=== PATIENT | female | born 1995 | race Caucasian/White ===

== ENCOUNTER 2016-09-20 09:53 | Emergency (ER) | payer SELFPAY ==
[2016-09-20 09:59] VITALS: BP 118/65; BMI 22.3
--- NOTE | 2016-09-20 10:23 | DR.GENAD ---
HPI - PCP Primary Care Physician: fredi - Complaint/Symptoms Chief Complaint Doctors Comments: Patient complained of sore throat for the past 24 hours and today when she was getting ready to go to work she vomitted x3 and got dizzy when she was standing like she was going to pass out she got light headed but no LOC. States she has had two periods this month with heavy bleeding. she is taking control pills and has not missed any pills. She denies dysuria, fever, chills, cold or cough. She has been having problems with her sinus. Chief Complaint:: patient stated her throat was hurting yesterday but this morning before she was to go to work she was dizzy and had blurried vision and she vomitied 3 times. - Nurses notes reviewed Nurses Notes Review: Yes - Source History Provided: Patient - Mode of Arrival Mode of Arrival: Ambulatory - Timing Onset of Chief Complaint: 09/19/16 Came on: Gradually - Duration Duration: Intermittent How lon Duration: Hours - Location Location: sore throat - Severity Severity: Moderate - Modifying Factors Worsens:: nothing Improves:: nothing PMH - PMH Past Medical History: Yes Past Medical History: Depression Past Surgical History: No - Family History History of Family Medical Conditions: Yes Family Medical History: Diabetes Mellitus, Cancer, Coronary Artery Disease, Hypertension - Social History Does patient currently use any type of tobacco product: No Have you used tobacco products in the last 12 months: No Type of Tobacco Use: None Does any household member use tobacco: Yes Alcohol Use: Rarely Do you use any recreational Drugs:: No Lives With: Family Lives Where: Home - infectious screening In the last 2 months have you had wt loss of >10#?: NO Have you had fever, night sweats or hemotysis?: No Have you traveled outside the country in the last 6 months?: No Isolation: Standard ROS - Review of Systems Constitutional: No Symptoms Reported. negative: See HPI, Chills, Diaphoresis, Fever, Malaise, Weakness, Irritable, Fatigue, Loss of Appetite, Other Eyes: No Symptoms Reported ENTM: No Symptoms Reported, Nose Discharge, Nose Congestion, Throat Pain. negative: See HPI, Ear Pain, Ear Discharge, Pulling on Ears, Hearing Loss, Nose Pain, Epistaxis, Mouth Pain, Mouth Swelling, Loose Teeth, Drooling, Throat Swelling, Ear Foreign Body Respiratoy: negative: No Symptoms Reported, See HPI, Productive Cough, Non- Productive Cough, Moist Cough, Dry Cough, Hacking Cough, Barking Cough, Brassy Cough, Orthopnea, Short of Breath, Stridor, Wheezing, Hemoptysis, Other Cardiovascular: No Symptoms Reported. negative: See HPI, Chest Pain, Edema, Palpitations, Syncope, Cyanosis, Skin Mottling, Other Gastrointestinal/Abdominal: No Symptoms Reported, Nausea, Vomiting. negative: See HPI, Abdominal Pain, Constipation, Diarrhea, Food Intolerance, Other Genitourinary: No Symptoms Reported. negative: See HPI, Discharge, Dysuria, Frequency, Hematuria, Pain, Bleeding, Other Neurological: No Symptoms Reported Musculoskeletal: No Symptoms Reported Integumentary: No Symptoms Reported Hematologic/Lymphatic: No Symptoms Reported. negative: See HPI, Anemia, Blood Clots, Easy Bleeding, Easy Bruising, Swollen Glands, Lymphadenopathy, Other Endocrine: No Symptoms Reported Psychiatric: No Symptoms Reported PE - Vital Signs Vitals: Temperature 98.9 F Pulse Rate 91 Respiratory Rate 16 Blood Pressure 118/65 O2 Sat by Pulse Oximetry 100 - General Limitations: No Limitations General Appearance: Alert, In No Apparent Distress - Eyes Eye exam: Normal Appearance, PERRL, EOMI, Scleral Icterus. negative: Conjunctival Injection, Nystagmus, Miosis, Mydrasis, Periorbital Swelling, Periorbital Tenderness, Other - ENT ENT Exam: Normal Exam, Normal Oropharynx, Normal External Ear Exam, Mucous Membranes Moist, TM's Normal Bilaterally External Ear Exam: Normal External Inspection TM/Canal Exam: Bilateral Normal Nose Exam: Normal Nose Exam Mouth Exam: Normal Inspection. negative: Drooling, Trismus, Lip Swelling, Tongue Elevation, Tongue Swelling, Laceration, Other Throat Exam: Normal Inspection, Tonsillar Erythema, Tonsillomegaly. negative: Tonsillar Exudate, R Peritonsillar Mass, L Peritonsillar Mass, Muffled Voice, Other - Neck Neck Exam: Normal Inspection, Full ROM, Trachea Midline, Lymphadenopathy - Respiratory Respiratory Exam: Normal Lung Sounds Bilat. negative: Accessory Muscle Use, Chest Wall Tenderness, Prolonged Expiratory Phase, Respiratory Distress, Stridor , Other Respiratory Exam: Bilateral Clear to Auscultation - Cardiovascular Cardiovascular Exam: Regular Rate, Normal Rhythm, Normal Heart Sounds. negative : Bradycardia, Tachycardia, Irregular Rhythm, Systolic Murmur, Diastolic Murmur , Rubs, Gallop, Clicks, JVD, +S1, +S2, +S3, +S4, Other - Abdominal Exam Abdominal Exam: Normal Inspection, Normal Bowel Sounds, Soft, Dimnished Bowel Sounds. negative: Distention, Tenderness, Guarding, Rebound, Rigidity, Hyperactive Bowel Sounds, Hypoactive Bowel Sounds, Organomegaly, Trauma, Incision, Ascites, Mass, Bruit, Pulsatile Mass, Hernia, Other Abdominal Tenderness: negative: RUQ, RLQ, LUQ, LLQ, Epigastrium, Suprapubic, Diffuse, Mild, Moderate, Severe, Other - Extremities Extremities Exam: Normal Inspection, Full ROM, Normal Capillary Refill. negative: Tenderness, Edema, Joint Swelling, Calf Tenderness, Other - Back Back Exam: Normal Inspection, Full ROM. negative: Tenderness, (R) CVA Tenderness, (L) CVA Tenderness, Muscle Spasm, Paraspinal Tenderness, Vertebral Tenderness, Rashes, (R) Sciatic Notch Tenderness, (L) Sciatic Notch Tendern, (R ) Straight Leg Raise, (L) Straight Leg Raise, Other - Neurologic Neurological Exam: Alert, Oriented X3, CN II-XII Intact, Normal Gait, Reflexes Normal - Psychiatric Psychiatric Exam: Normal Affect, Normal Mood. negative: Depressed, Agitated, Anxious, Flat Affect, Manic, Homicidal Ideation, Suicidal Ideation, Other - Skin Skin Exam: Warm, Dry, Intact, Normal Color. negative: Rash, Cyanosis, Diaphoresis, Erythema, Pallor, Mottled, Other ROR - Labs Reviewed Laboratory Results Reviewed?: Yes (all labs and x-ray results reviewed and discussed with patient) Result Diagrams: 09/20/16 10:45 09/20/16 10:45 Laboratory: WBC 16.4 X10^3/uL (3.6-10.0) H 09/20/16 10:45 RBC 4.82 X10^6/uL (3.5-5.4) 09/20/16 10:45 Hgb 14.5 g/dL (12.0-16.0) 09/20/16 10:45 Hct 42.3 % (36.0-47.0) 09/20/16 10:45 MCV 87.8 fL (80.0-100.0) 09/20/16 10:45 MCH 30.1 pg (27.0-34.0) 09/20/16 10:45 MCHC 34.4 g/dL (33.0-35.0) 09/20/16 10:45 RDW 12.7 % (11.6-16.5) 09/20/16 10:45 Plt Count 221 X10^3/uL (150.0-450.0) 09/20/16 10:45 Plt Count Comment Adequate (ADEQUATE) 09/20/16 10:45 MPV 10.2 fL (7.4-11.0) 09/20/16 10:45 Neut % 91.0 % (42.0-75.0) H 09/20/16 10:45 Lymph % 5.1 % (21.0-51.0) L 09/20/16 10:45 [place] % 3.6 % (0.0-13.0) 09/20/16 10:45 Eos % 0.1 % (0.9-2.9) L 09/20/16 10:45 Baso % 0.2 % (0.2-1.0) 09/20/16 10:45 Neut # 14.9 x10^3/uL (2.2-4.8) H 09/20/16 10:45 Lymph # 0.8 X10^3/uL (1.3-2.9) L 09/20/16 10:45 [place] # 0.6 x10^3/uL (0.3-0.8) 09/20/16 10:45 Eos # 0.0 x10^3/uL (0.0-0.2) 09/20/16 10:45 Baso # 0.0 X10^3/uL (0.0-0.1) 09/20/16 10:45 Absolute Nucleated RBC 0.0 /100WBC 09/20/16 10:45 Total Counted 100 09/20/16 10:45 Neutrophils % (Manual) 86 % (39-76) H 09/20/16 10:45 Band Neutrophils % 5 % (0-10) 09/20/16 10:45 Lymphocytes % (Manual) 5 % (13-43) L 09/20/16 10:45 Monocytes % (Manual) 3 % (4-9) L 09/20/16 10:45 Eosinophils % (Manual) 1 % (0-6) 09/20/16 10:45 Plt Morphology Comment Normal (NORMAL) 09/20/16 10:45 RBC Morphology Normal (NORMAL) 09/20/16 10:45 Sodium 140 mmol/L (136-145) 09/20/16 10:45 Corrected Sodium TNP 09/20/16 10:45 Potassium 4.0 mmol/L (3.5-5.1) 09/20/16 10:45 Chloride 105 mmol/L (98-107) 09/20/16 10:45 Carbon Dioxide 26.4 mmol/L (21-32) 09/20/16 10:45 BUN 16 mg/dL (7-18) 09/20/16 10:45 Creatinine 0.80 mg/dL (0.55-1.02) 09/20/16 10:45 Est GFR (MDRD) Af Amer > 60 (>60) 09/20/16 10:45 Est GFR (MDRD) Non-Af > 60 (>60) 09/20/16 10:45 Glucose 105 mg/dL (65-99) H 09/20/16 10:45 Calcium 9.4 mg/dL (8.5-10.1) 09/20/16 10:45 HCG, Qual Negative <10 mIU/mL 09/20/16 10:45 Specimen Type Clean catch urine 09/20/16 11:59 Urine Color Yellow (YELLOW) 09/20/16 11:59 Urine Appearance Cloudy (CLEAR) 09/20/16 11:59 Urine pH 6.0 (5.0 - 8.0) 09/20/16 11:59 Ur Specific [place] 1.020 (1.000-1.030) 09/20/16 11:59 Urine Protein 1+ (NEGATIVE) 09/20/16 11:59 Urine Glucose (UA) Negative (NEGATIVE) 09/20/16 11:59 Urine Ketones 2+ (NEGATIVE) 09/20/16 11:59 Urine Occult Blood 1+ (NEGATIVE) 09/20/16 11:59 Urine Nitrite Positive (NEGATIVE) 09/20/16 11:59 Urine Bilirubin Negative (NEGATIVE) 09/20/16 11:59 Urine Urobilinogen Normal (NORMAL) 09/20/16 11:59 Ur Leukocyte Esterase 3+ (NEGATIVE) 09/20/16 11:59 Urine RBC 5 - 10 /HPF (NEGATIVE) 09/20/16 11:59 Urine WBC Tntc /HPF (NEGATIVE) 09/20/16 11:59 Ur Squamous Epith Cells Few /HPF (NEGATIVE) 09/20/16 11:59 Urine Bacteria 3+ /HPF (NEGATIVE) 09/20/16 11:59 Urine Mucus Few /HPF (NEGATIVE) 09/20/16 11:59 Ur Culture Indicated? Yes/culture set up 09/20/16 11:59 Streptococcus Screen Negative (NEGATIVE) 09/20/16 11:10 - Diagnosis Discharge Problem: Pharyngitis Qualifiers: Pharyngitis/tonsillitis etiology: other specified organisms Qualified Code(s): J02.8 - Acute pharyngitis due to other specified organisms Urinary tract infection Qualifiers: Urinary tract infection type: acute cystitis Hematuria presence: without hematuria Qualified Code(s): N30.00 - Acute cystitis without hematuria Sinusitis Qualifiers: Sinusitis location: maxillary - Discharge Plan Disposition: HOME, SELF-CARE Condition: Stable Prescriptions: Cetirizine HCl [Zyrtec Tab 10 mg] 10 mg PO DAILY #30 tab Ibuprofen [MOTRIN TAB 800 MG *] 800 mg PO BID PRN #40 tab PRN Reason: Pain/Inflammation Levofloxacin [LEVAQUIN TAB 500 MG *] 500 mg PO Q24H PRN #10 tab PRN Reason: - Follow ups/Referrals Follow ups/Referrals: MADHURI CORONA [Primary Care Provider] - 3 days - Instructions Instructions: Pharyngitis, Sinusitis, Adult, Urinary Tract Infection
[2016-09-20 11:02] LABS: BASOPHILS % (AUTO) 0.2 % (0.2-1.0); EOSINOPHILS % (AUTO) 0.1 % (0.9-2.9); HEMATOCRIT 42.3 % (36.0-47.0); HEMOGLOBIN 14.5 g/dL (12.0-16.0); LYMPHOCYTES # (AUTO) 0.8 X10^3/uL (1.3-2.9); LYMPHOCYTES % (AUTO) 5.1 % (21.0-51.0); MEAN CORPUSCULAR HEMOGLOBIN 30.1 pg (27.0-34.0); MEAN CORPUSCULAR HGB CONC 34.4 g/dL (33.0-35.0); MEAN CORPUSCULAR VOLUME 87.8 fL (80.0-100.0); MEAN PLATELET VOLUME 10.2 fL (7.4-11.0); MONOCYTES # (AUTO) 0.6 x10^3/uL (0.3-0.8); MONOCYTES % (AUTO) 3.6 % (0.0-13.0); NEUTROPHILS # (AUTO) 14.9 x10^3/uL (2.2-4.8); PLATELET COUNT 221 X10^3/uL (150.0-450.0); RED BLOOD COUNT 4.82 X10^6/uL (3.5-5.4); RED CELL DISTRIBUTION WIDTH 12.7 % (11.6-16.5); WHITE BLOOD COUNT 16.4 X10^3/uL (3.6-10.0)
[2016-09-20 11:10] LABS: BLOOD UREA NITROGEN 16 mg/dL (7-18); CALCIUM 9.4 mg/dL (8.5-10.1); CARBON DIOXIDE 26.4 mmol/L (21-32); CHLORIDE 105 mmol/L (98-107); GLUCOSE 105 mg/dL (65-99); SODIUM 140 mmol/L (136-145); eGFR BLACK RACES > 60 (>60); eGFR NON BLACK RACES > 60 (>60)
[2016-09-20 11:12] LABS: SERUM PREGNANCY TEST, QUAL NEGATIVE <10 mIU/mL
[2016-09-20 11:15] LABS: BAND NEUTROPHILS % 5 % (0-10); PLATELET MORPHOLOGY COMMENT NORMAL (NORMAL)
[2016-09-20] MEDS ORDERED: TORADOL 60 MG VIAL IM ONE (11:43)
[2016-09-20] MEDS ORDERED: ZOFRAN TAB 4 MG PO STA (11:43)
[2016-09-20] MEDS ORDERED: ROCEPHIN VIAL 1 GM IM ONE (11:43)
[2016-09-20] MEDS ORDERED: ZOFRAN TAB 4 MG ONE (11:47)
[2016-09-20] MEDS ORDERED: TORADOL 60 MG VIAL ONE (11:48)
[2016-09-20] MEDS ORDERED: ROCEPHIN VIAL 1 GM ONE (11:48)
[2016-09-20 12:18] LABS: BILIRUBIN,URINE NEGATIVE (NEGATIVE); BLOOD/HEMOGLOBIN,URINE 1+ (NEGATIVE); GLUCOSE, URINE NEGATIVE (NEGATIVE); KETONES,URINE 2+ (NEGATIVE); LEUKOCYTE ESTERASE ,URINE 3+ (NEGATIVE); NITRITES,URINE POSITIVE (NEGATIVE); PROTEIN,URINE 1+ (NEGATIVE); UROBILINOGEN,URINE NORMAL (NORMAL)
[2016-09-20 12:26] LABS: COLOR,URINE YELLOW (YELLOW)
[2016-09-20 12:29] LABS: APPEARANCE,URINE CLOUDY (CLEAR)
[2016-09-20 12:32] LABS: BACTERIA,URINE 3+ /HPF (NEGATIVE); MUCUS,URINE FEW /HPF (NEGATIVE); SQUAMOUS EPITHELIAL CELL,UR FEW /HPF (NEGATIVE)
[2016-09-20] MEDS ORDERED: LEVAQUIN TAB 500 MG ONE (12:47)
[2016-09-20] MEDS ORDERED: LEVAQUIN TAB 500 MG PO SCH (13:00)
== END 2016-09-20 12:57 | disposition home or self-care (01) ==
LOC: ER 10:01
DX: J02.8 Acute pharyngitis due to other specified organisms (principal); N30.00 Acute cystitis without hematuria; J32.0 Chronic maxillary sinusitis; B96.29 Other Escherichia coli [E. coli] as the cause of diseases classified elsewhere
CPT/HCPCS: 36415; 80048; 81001; 84703; 85025; 87070; 87086; 87088; 87186; 87880; 96372; 99282; 99283; S0181; J0696; J1885

== ENCOUNTER 2016-12-01 16:32 | Emergency (ER) | payer BC ==
[2016-12-01 16:38] VITALS: BMI 22.3
[2016-12-01 16:41] VITALS: BP 113/67
--- NOTE | 2016-12-01 19:45 | DR.PREG ---
HPI - Time seen Time seen: 19:50 - PCP Primary Care Physician: CJ MARTE - HPI Comment HPI Comment: 6 WEEKS . VAGINAL BLEEDING. SEEN IN [place] 3 DAYS AGO, QUANT HCG DONE. US DONE WITH CONFIRM INTRAUTERINE . STILL SEENING DARK BLOOD. - Chief Complaint Chief Complaint Doctors Comments: VAGINAL BLEEDING. Chief Complaint:: PT C/O BEING 6 WEEKS AND THAT SHE HAD SOME VAGINAL LAST THURSDAY AND PT C/O HAVING SOME BROWN BLOOD NOTED LAST NIGHT. - Nurses Notes Reviewed Nurses Notes Review: Yes - Source History Provided: Patient - Mode of Arrival Mode of Arrival: Ambulatory - Context Complains of: Vaginal bleeding History of: None Blood Type: O, Pos - Quality Vaginal fluid leakage color: None - Timing Onset of Chief Complaint: 11/27/16 Came on: Suddenly Pain: Present Now Pain: Irregular - Associated Signs & Symptoms Asociated signs & symptoms: Other (NONE) PMH - PMH Past Medical History: No Past Medical History: Depression Past Surgical History: No - Family History History of Family Medical Conditions: Yes Family Medical History: Diabetes Mellitus, Cancer, [place], Coronary Artery Disease, Heart Failure, Sudden Cardiac , Hypertension - Social History Does patient currently use any type of tobacco product: No Have you used tobacco products in the last 12 months: No Type of Tobacco Use: None Does any household member use tobacco: No Alcohol Use: None Do you use any recreational Drugs:: No Lives With: Family Lives Where: Home - infectious screening In the last 2 months have you had wt loss of >10#?: NO Have you had fever, night sweats or hemotysis?: No Have you traveled outside the country in the last 6 months?: No Isolation: Standard ROS - Review of Systems Constitutional: No Symptoms Reported Eyes: No Symptoms Reported ENTM: No Symptoms Reported Respiratoy: No Symptoms Reported Cardiovascular: No Symptoms Reported Gastrointestinal/Abdominal: No Symptoms Reported Genitourinary: No Symptoms Reported Neurological: No Symptoms Reported Musculoskeletal: No Symptoms Reported Integumentary: No Symptoms Reported Hematologic/Lymphatic: No Symptoms Reported Endocrine: No Symptoms Reported All Other Systems: Reviewed and Negative PE - Vital Signs Vitals: Temperature 98.1 F Pulse Rate 97 Respiratory Rate 22 Blood Pressure 113/67 O2 Sat by Pulse Oximetry 99 - General Limitations: No Limitations General Appearance: Alert - Head Head Exam: Normal Inspection - Eyes Eye exam: Normal Appearance - ENT ENT Exam: Normal External Ear Exam - Neck Neck Exam: Normal Inspection - Chest Chest Inspection: Symmetric Chest Wall Rise - Respiratory Respiratory Exam: Normal Lung Sounds Bilat Respiratory Exam: Bilateral Clear to Auscultation - Cardiovascular Cardiovascular Exam: Regular Rate, Normal Rhythm, Normal Heart Sounds - Abdominal Exam Abdominal Exam: Normal Bowel Sounds, Soft. negative: Tenderness - Back Back Exam: Normal Inspection - Extremeties Extremities Exam: Normal Inspection - Neurologic Neurological Exam: Alert, Oriented X3 - Psychiatric Psychiatric Exam: Anxious - Skin Skin Exam: Normal Color MDM - Differential Diagnosis Differential Diagnosis: threatened, Urinary tract infection, Vaginal bleeding Course - Treatment Treatment: SEE ORDERS. REPEAT QUANT HCG IN ED. TRIPLE FROM 3 DAYS AGO. - Education/Counseling Education/Counseling: Patient, Education Educated On: Treatment, Diagnosis, Needs for Follow Up ROR - Labs Reviewed Laboratory Results Reviewed?: Yes Result Diagrams: 12/01/16 18:06 Laboratory: WBC 7.8 X10^3/uL (3.6-10.0) 12/01/16 18:06 RBC 4.72 X10^6/uL (3.5-5.4) 12/01/16 18:06 Hgb 14.3 g/dL (12.0-16.0) 12/01/16 18:06 Hct 41.5 % (36.0-47.0) 12/01/16 18:06 MCV 87.9 fL (80.0-100.0) 12/01/16 18:06 MCH 30.2 pg (27.0-34.0) 12/01/16 18:06 MCHC 34.4 g/dL (33.0-35.0) 12/01/16 18:06 RDW 13.1 % (11.6-16.5) 12/01/16 18:06 Plt Count 241 X10^3/uL (150.0-450.0) 12/01/16 18:06 MPV 10.3 fL (7.4-11.0) 12/01/16 18:06 Neut % 67.6 % (42.0-75.0) 12/01/16 18:06 Lymph % 24.5 % (21.0-51.0) 12/01/16 18:06 [place] % 6.6 % (0.0-13.0) 12/01/16 18:06 Eos % 1.1 % (0.9-2.9) 12/01/16 18:06 Baso % 0.2 % (0.2-1.0) 12/01/16 18:06 Neut # 5.2 x10^3/uL (2.2-4.8) H 12/01/16 18:06 Lymph # 1.9 X10^3/uL (1.3-2.9) 12/01/16 18:06 [place] # 0.5 x10^3/uL (0.3-0.8) 12/01/16 18:06 Eos # 0.1 x10^3/uL (0.0-0.2) 12/01/16 18:06 Baso # 0.0 X10^3/uL (0.0-0.1) 12/01/16 18:06 Absolute Nucleated RBC 0.0 /100WBC 12/01/16 18:06 HCG, Quant [id number] mIU/mL (0-6) H 12/01/16 18:04 Blood Type O POSITIVE 12/01/16 18:24 - Diagnosis Discharge Problem: Vaginal bleeding before 22 weeks gestation - Discharge Plan Disposition: 01 HOME, SELF-CARE Condition: Stable - Follow ups/Referrals Follow ups/Referrals: MADHURI CORONA [Primary Care Provider] - 12/02/16 - Instructions Instructions: Vaginal Bleeding During , First Trimester, Pelvic Rest Additional Instructions: RETURN TO ED IF WORSE.
[2016-12-01 19:51] LABS: BASOPHILS % (AUTO) 0.2 % (0.2-1.0); EOSINOPHILS # (AUTO) 0.1 x10^3/uL (0.0-0.2); EOSINOPHILS % (AUTO) 1.1 % (0.9-2.9); HEMATOCRIT 41.5 % (36.0-47.0); HEMOGLOBIN 14.3 g/dL (12.0-16.0); LYMPHOCYTES # (AUTO) 1.9 X10^3/uL (1.3-2.9); LYMPHOCYTES % (AUTO) 24.5 % (21.0-51.0); MEAN CORPUSCULAR HEMOGLOBIN 30.2 pg (27.0-34.0); MEAN CORPUSCULAR HGB CONC 34.4 g/dL (33.0-35.0); MEAN CORPUSCULAR VOLUME 87.9 fL (80.0-100.0); MEAN PLATELET VOLUME 10.3 fL (7.4-11.0); MONOCYTES # (AUTO) 0.5 x10^3/uL (0.3-0.8); MONOCYTES % (AUTO) 6.6 % (0.0-13.0); NEUTROPHILS # (AUTO) 5.2 x10^3/uL (2.2-4.8); NEUTROPHILS % (AUTO) 67.6 % (42.0-75.0); PLATELET COUNT 241 X10^3/uL (150.0-450.0); RED BLOOD COUNT 4.72 X10^6/uL (3.5-5.4); RED CELL DISTRIBUTION WIDTH 13.1 % (11.6-16.5); WHITE BLOOD COUNT 7.8 X10^3/uL (3.6-10.0)
== END 2016-12-01 19:54 | disposition home or self-care (01) ==
LOC: ER 16:50
DX: O20.8 Other hemorrhage in early pregnancy (principal); Z3A.01 Less than 8 weeks gestation of pregnancy
CPT/HCPCS: 36415; 84702; 85025; 86900; 86901; 99282